=== PATIENT | female | born 1955 | race Caucasian/White ===

== ENCOUNTER 2022-03-12 07:19 | Day surgery (SDC) | payer MEDICARE, BC ==
[2022-03-12] MEDS ORDERED: fentaNYL 100 MCG/2 ML SDV IV ONE (07:20)
[2022-03-12] MEDS ORDERED: Midazolam 1 MG/ML 2 ML SDV IV ONE (07:20)
[2022-03-12] MEDS ORDERED: Sodium Chloride 0.9% 10 ML Syringe IV ONE (07:20)
[2022-03-12] MEDS ORDERED: Lactated Ringers 1,000 ML IV PRN (07:30)
[2022-03-12] MEDS ORDERED: Sodium Chloride 0.9% 10 ML Syringe FLUSH PRN (07:30)
[2022-03-12] MEDS ORDERED: acetaZOLAMIDE 500 MG Cap.ER PO ONE (09:30)
== END 2022-03-12 10:10 | disposition home or self-care (01) ==
LOC: FB.SDS 07:19
PROVIDERS: ATTEND Ophthalmology
DX: H25.813 Combined forms of age-related cataract, bilateral (principal); H04.123 Dry eye syndrome of bilateral lacrimal glands; H43.813 Vitreous degeneration, bilateral; D31.31 Benign neoplasm of right choroid; H52.13 Myopia, bilateral; E03.9 Hypothyroidism, unspecified; Z79.899 Other long term (current) drug therapy; E66.9 Obesity, unspecified; Z68.36 Body mass index [BMI] 36.0-36.9, adult
CPT/HCPCS: 00142; 66984; A9270; J2250; J3010; J3490; V2632

== ENCOUNTER 2022-03-26 06:51 | Day surgery (SDC) | payer MEDICARE, BC ==
[~2022-03-26 06:51] MED LIST: Lactated Ringers 1,000 ML IV PRN; Sodium Chloride 0.9% 10 ML Syringe FLUSH PRN
[2022-03-26] MEDS ORDERED: fentaNYL 100 MCG/2 ML SDV IV ONE (06:52)
[2022-03-26] MEDS ORDERED: Midazolam 1 MG/ML 2 ML SDV IV ONE (06:52)
[2022-03-26] MEDS ORDERED: Sodium Chloride 0.9% 10 ML Syringe IV ONE (06:52)
[2022-03-26] MEDS ORDERED: acetaZOLAMIDE 500 MG Cap.ER PO ONE (08:30)
== END 2022-03-26 09:27 | disposition home or self-care (01) ==
LOC: FB.SDS 06:51
PROVIDERS: ATTEND Ophthalmology
DX: H25.813 Combined forms of age-related cataract, bilateral (principal); H04.123 Dry eye syndrome of bilateral lacrimal glands; H18.513 Endothelial corneal dystrophy, bilateral; D31.31 Benign neoplasm of right choroid; H52.13 Myopia, bilateral; E03.9 Hypothyroidism, unspecified; E66.9 Obesity, unspecified; Z79.899 Other long term (current) drug therapy; Z68.36 Body mass index [BMI] 36.0-36.9, adult
CPT/HCPCS: 00142-QZ; A9270-GY; J2250; J3010; J3490; V2632

== ENCOUNTER 2023-06-03 13:22 | Emergency (ER) | payer MEDICARE, BC ==
[2023-06-03] MEDS ORDERED: Sodium Chloride 0.9% 10 ML Syringe FLUSH PRN (13:26)
[2023-06-03 14:03] LABS: BLOOD UREA NITROGEN,BUN 13 mg/dL (7-18); BUN/CREATININE RATIO 14.4 (9-20); CALCIUM 9.3 mg/dL (8.6-10.2); CARBON DIOXIDE,CO2 28 mmol/L (21-32); CHLORIDE,CL 103 mmol/L (100-110); CREATININE 0.9 mg/dL (0.55-1.02); ESTIMATED GFR 69 mL/min (>60); GLUCOSE RANDOM 115 mg/dL (80-116); POTASSIUM,K 3.7 mmol/L (3.5-5.3); SODIUM,NA 138 mmol/L (135-145)
[2023-06-03 14:06] LABS: BASOPHILS ABSOLUTE AUTO 0.1 x10-3/uL (0.0-0.1); BASOPHILS PERCENT AUTO 0.8 % (0.2-1.5); EOSINOPHILS ABSOLUTE AUTO 0.5 x10-3/uL (0.0-0.8); EOSINOPHILS PERCENT AUTO 4.9 % (0.6-8.1); HEMATOCRIT 44.7 % (34.2-48.2); HEMOGLOBIN 15.1 g/dL (11.4-15.5); LYMPHOCYTES ABSOLUTE AUTO 1.7 x10-3/uL (1.0-4.4); LYMPHOCYTES PERCENT AUTO 16.3 % (18.4-52.1); MEAN CORPUSCULAR HEMOGLOBIN 30.2 pg (23.9-33.9); MEAN CORPUSCULAR HGB CONC 33.7 g/dL (31.9-34.8); MEAN CORPUSCULAR VOLUME 89.6 fL (76.7-100.5); MEAN PLATELET VOLUME 7.9 fL (7.1-12.4); MONOCYTES ABSOLUTE AUTO 1.6 x10-3/uL (0.3-1.0); MONOCYTES PERCENT AUTO 15.7 % (4.4-15.7); NEUTROPHILS ABSOLUTE AUTO 6.5 x10-3/uL (1.5-6.3); NEUTROPHILS PERCENT AUTO 62.3 % (30.8-76.2); PLATELET COUNT,PLT 333 x10(3)uL (151-488); RED BLOOD CELL COUNT 4.99 x10(6)uL (3.60-5.20); RED CELL DISTRIBUTION WIDTH 13.7 % (12.3-16.5); WHITE BLOOD CELL COUNT,WBC 10.5 x10-3/uL (3.0-10.3)
[2023-06-03 14:09] LABS: A/G RATIO 0.6; ALANINE AMINOTRANSFERASE,ALT 27 U/L (12-36); ALBUMIN 2.7 g/dL (3.2-4.6); ALKALINE PHOSPHATASE 57 IU/L (56-112); ASPARTATE AMNIOTRANSFERASE,AST 24 IU/L (5-25); BILIRUBIN TOTAL 0.5 mg/dL (0.1-1.3); PROTEIN TOTAL,TP 7.5 g/dL (6.0-8.0)
[2023-06-03 14:10] LABS: BASE EXCESS VENOUS,POC 2 mmol/L (-2 - 3+); PCO2 VENOUS,POC 35 mmHg (41-51); PH VENOUS,POC 7.46 pH Units (7.32-7.43)
[2023-06-03 14:18] LABS: TROPONIN I 4.6 pg/mL (4.0-60.3)
[2023-06-03 14:21] LABS: C-REACTIVE PROTEIN 4.14 mg/dL (<0.50)
[2023-06-03 14:41] LABS: INFLUENZA A NAA NEGATIVE (NEGATIVE); INFLUENZA B NAA NEGATIVE (NEGATIVE); RESPIRATORY SYNCYTIAL VIR NAA NEGATIVE (NEGATIVE)
[2023-06-03 15:00] LABS: CORONAVIRUS COVID-19 NAA NEGATIVE (NEGATIVE)
[2023-06-03] MEDS ORDERED: Iopamidol 755 Mg/ML 100 ML Bottle IV SCH (16:30)
[2023-06-03 17:53] LABS: APPEARANCE,URINE CLEAR (CLEAR); BILIRUBIN,URINE NEGATIVE (NEGATIVE); COLOR,URINE YELLOW (YELLOW); GLUCOSE,URINE NORMAL (NORMAL); KETONES,URINE NEGATIVE (NEGATIVE); LEUKOCYTE ESTERASE,URINE NEGATIVE (NEGATIVE); NITRITE,URINE NEGATIVE (NEGATIVE); OCCULT BLOOD,URINE NEGATIVE (NEGATIVE); PROTEIN,URINE NEGATIVE (NEGATIVE); RBC,URINE 0-5 (0-5); SQUAMOUS EPITHELIAL CELLS,UR FEW (NS,R,O); UROBILINOGEN,URINE NORMAL (NEGATIVE); WBC,URINE 0-5 (0-5)
[2023-06-03 17:54] LABS: BACTERIA,URINE FEW (NS)
[2023-06-03] MEDS ORDERED: Azithromycin 500 MG Tab PO ONE (18:23)
[2023-06-03] MEDS ORDERED: Enoxaparin 120 MG/0.8 ML Syringe SUBCUT ONE (18:23)
[2023-06-03] MEDS ORDERED: Enoxaparin 60 MG/0.6 ML Syringe ONE (19:08)
== END 2023-06-03 19:30 ==
LOC: FB.ED 13:22
DX: R09.02 Hypoxemia (principal); R06.00 Dyspnea, unspecified; R91.8 Other nonspecific abnormal finding of lung field; R05.3 Chronic cough; E88.09 Other disorders of plasma-protein metabolism, not elsewhere classified; R79.82 Elevated C-reactive protein (CRP); R79.89 Other specified abnormal findings of blood chemistry; D72.829 Elevated white blood cell count, unspecified; Z79.899 Other long term (current) drug therapy; Z20.822 Contact with and (suspected) exposure to COVID-19
CPT/HCPCS: 0241U; 36415; 70450; 71046; 71275; 80053; 81001; 83605; 83880; 84484; 85025; 85379; 86140; 87040; 93005; 93010; 96372; 99285; A9270-GY; J1650; Q9967